=== PATIENT | male | born 1965 | race African-American/Black ===

== ENCOUNTER 2017-10-15 07:44 | Day surgery (SDC) | payer BC ==
[2017-10-12 14:28] VITALS: BMI 25.8
[2017-10-15] MEDS ORDERED: MIDAZOLAM HCL 2 MG/2 ML SINGLE DOSE VIAL ONE (09:27)
[2017-10-15] MEDS ORDERED: ceFAZolin SODIUM 1 GM VIAL ONE (10:17)
[2017-10-15] MEDS ORDERED: DEXAMETHASONE SOD PHOSPHATE 4 MG/1 ML VIAL ONE (10:18)
[2017-10-15] MEDS ORDERED: BUPIVACAINE HCL/PF 0.25% (2.5MG/ML) 10 ML VIAL IJ ONE ×2 (10:34→10:49)
[2017-10-15] MEDS ORDERED: ONDANSETRON 4 MG/2 ML VIAL IVPUSH ONE (11:11)
[2017-10-15] MEDS ORDERED: ONDANSETRON 4 MG/2 ML VIAL IVPUSH PRN (11:12)
[2017-10-15] MEDS ORDERED: oxyCODONE HCL 5 MG TABLET PO PRN ×2 (11:12)
[2017-10-15] MEDS ORDERED: LACTATED RINGERS SOLUTION 1,000 ML IV SCH (11:15)
[2017-10-15 12:13] VITALS: TEMP 97.8
[2017-10-15 12:47] VITALS: BP 122/60; PULSE 55
--- NOTE | 2017-10-15 17:38 | OP ---
DATE OF OPERATION: 10/15/2017 SURGEON: Tristen Santos M.D. [employer]AL[employer] PRACTICE MANAGER: Hailee Ferrera PREOPERATIVE DIAGNOSIS: 1. Right knee medial lateral meniscal tear. 2. Right knee cartilage injury. 3. Right knee synovitis. POSTOPERATIVE DIAGNOSIS: 1. Right knee medial lateral meniscal tear. 2. Right knee cartilage injury. 3. Right knee synovitis. PROCEDURE: 1. Right knee arthroscopy, partial meniscectomy medial and lateral meniscus. CPT code 37492. 2. Right knee arthroscopy with chondroplasty and abrasion plasty. CPT code 51365. 3. Right knee arthroscopy synovectomy including removal of medial plica. CPT code 15930. FINDINGS: 1. Medial meniscus body and posterior horn tear with posterior 1/3 complete tear. 2. Lateral meniscus posterior horn tear. 3. Synovitis patellofemoral medial lateral notch area with medial plica. 4. Central grade 2 cartilage injury medial femoral condyle. 5. ACL and PCL intact. 6. Minimal cartilage changes lateral joint. 7. Central grade 2 cartilage injury patella, grade 2-4 changes patellofemoral trochlea. PROCEDURE: Informed consent was obtained. The patient came to the operating room, where the lower extremity was prepped and draped in a sterile fashion. A tourniquet was placed on the upper thigh, but not inflated. Using standard arthroscopic technique, a lateral incision and portal was made to allow for introduction of the camera into the suprapatellar bursa. This was then taken to the medial joint line, where under direct visualization, a medial incision and portal was made. Excessive synovium noted in the medial, lateral and patellofemoral and notch area was removed by an upbiter, shaver and Bovie cautery. This was found to bring in inflammatory tissue into the joint surface, a source of pain and dysfunction. Probing of the medial and lateral meniscus found tears, as described in the findings. These were removed with the upbiter and shaver and taken back to a stable rim. Grade 2 to 3 degenerative changes were treated with a chondroplasty, removing all flaking surfaces with low-setting Bovie along the periphery to prevent further flaking. Grade 4 changes, as noted, were treated with an abrasoplasty, creating a bleeding surface at the bone/cartilage interface. Aggressive debridement with shaver/dat created bleeding surface. Micro fracture also done when indicated in findings. All areas of the knee were once again reexamined. The knee was then drained and a single suture was placed in all portals. A sterile dressing was placed and the patient was transferred to the recovery room without complication. TRISTEN SANTOS M.D. [id number]
--- NOTE | 2017-10-18 15:30 | PATH ---
Surgical Pathology Report Patient Name: KI BLAND [facility]. Rec. #: [id number] /Age/Gender: 1965 (Age: 52) / M Account: [id number] Location: COUNT INCLUDES THE [facility] Taken: 10/15/2017 Received: 10/15/2017 Reported: 10/18/2017 Physicians: Tristen Keita M.D. Specimen(s) Received RIGHT KNEE SHAVINGS Clinical History Right knee internal derangement Final Diagnosis KNEE, RIGHT, ARTHROSCOPIC SHAVINGS: CARTILAGE AND FIBROSYNOVIAL TISSUE. Electronically Signed Haley Ramirez M.D. Gross Description Received in formalin, labeled "right knee shavings," is a 4.3 x 4.0 x 0.5 cm. aggregate of odonnell-yellow soft tissue fragments. A textile designs sales representative portion is submitted in one cassette. /10/15/2017 saudi10/15/2017
== END 2017-10-15 11:45 | disposition home or self-care (01) ==
LOC: FASU 07:44
PROVIDERS: ATTEND Orthopaedic Surgery
PROC: 0SBD4ZZ Excision of Left Knee Joint, Percutaneous Endoscopic Approach (ICD-10-PCS; 2017-10-15)
PROC: 0SBD4ZZ Excision of Left Knee Joint, Percutaneous Endoscopic Approach (ICD-10-PCS; principal; 2017-10-15 09:00)
DX: S83.241A Other tear of medial meniscus, current injury, right knee, initial encounter (principal); S83.281A Other tear of lateral meniscus, current injury, right knee, initial encounter; S83.8X1A Sprain of other specified parts of right knee, initial encounter; M65.861 Other synovitis and tenosynovitis, right lower leg; X58.XXXA Exposure to other specified factors, initial encounter; Y93.9 Activity, unspecified; Y92.9 Unspecified place or not applicable
CPT/HCPCS: 88304-TC; 94760